=== PATIENT | female | born 1960 | race Caucasian/White ===

== ENCOUNTER → 2021-07-18 | Outpatient (CLI) | payer MEDICAID | LOC: M.NUC 10:02 | PROVIDERS: ATTEND Internal Medicine Hematology & Oncology | DX: C50.919 Malignant neoplasm of unspecified site of unspecified female breast (principal) ==

== ENCOUNTER → 2021-10-21 | Outpatient (CLI) | payer MEDICAID ==
[~2021-10-21] MED LIST: AMBIEN 10 MG TA10 MG PO; ARIMIDEX1 MG PO; IBRANCE75 MG PO; NEURONTIN 300M300 M2 PO; PERCOCET 7.5-31 EAC1 PO
== END ==
LOC: M.LAB 12:27
PROVIDERS: ATTEND Internal Medicine Gastroenterology
DX: Z01.812 Encounter for preprocedural laboratory examination (principal); Z20.822 Contact with and (suspected) exposure to COVID-19; E87.6 Hypokalemia

== ENCOUNTER → 2021-11-18 | Outpatient (CLI) | payer MEDICAID | LOC: M.NUC 09-20 12:24 | PROVIDERS: ATTEND Internal Medicine Hematology & Oncology | DX: C50.919 Malignant neoplasm of unspecified site of unspecified female breast (principal) ==